=== PATIENT | male | born 1985 | race Caucasian/White ===

== ENCOUNTER 2017-04-14 00:49 | Emergency (ER) | payer OTHER ==
[~2017-04-14 00:49] MED LIST: Amrix15 MG; HYDACE5 PO; OXYACE5T PO; RANI150 PO; RXOXYACE PO; RXTRAM50 PO; SULTRIDS PO; TRAM50 PO; [UNRECOGNIZED DRUG - REMARK] SL
== END 2017-04-14 02:26 | disposition left against medical advice (07) ==
LOC: ER 00:49
DX: Z53.21 Procedure and treatment not carried out due to patient leaving prior to being seen by health care provider (principal)

== ENCOUNTER 2019-06-01 13:53 | Observation (INO) | payer OTHER ==
[~2019-06-01] VITALS: Ht 190.5 cm; Wt 120.2 kg
[2019-06-01 14:26] LABS: BASOPHILS ABSOLUTE AUTO 0.03 K/mm3 (0.00-0.23); BASOPHILS PERCENT AUTO 0 % (0-2); EOSINOPHILS ABSOLUTE AUTO 0.16 K/mm3 (0.00-0.68); EOSINOPHILS PERCENT AUTO 2 % (0-6); Hematocrit 47.3 % (37.0-53.0); Hemoglobin 15.4 g/dL (13.5-17.5); IMMATURE GRAN ABSOLUTE AUTO 0.02 K/mm3 (0.00-0.10); IMMATURE GRAN PERCENT AUTO 0 % (0-1); LYMPHOCYTES ABSOLUTE AUTO 1.85 K/mm3 (0.84-5.20); LYMPHOCYTES PERCENT AUTO 26 % (21-46); MONOCYTES ABSOLUTE AUTO 0.65 K/mm3 (0.16-1.47); MONOCYTES PERCENT AUTO 9 % (4-13); Mean Corpuscular HGB 29.6 pg (26.0-34.0); Mean Corpuscular HGB Conc 32.6 g/dL (31.5-36.5); Mean Corpuscular Volume 91 fL (80-100); Mean Platelet Volume 9.9 fL (9.1-12.4); NEUTROPHILS ABSOLUTE AUTO 4.29 K/mm3 (1.96-9.15); NEUTROPHILS PERCENT AUTO 61 % (41-73); Platelet Count 191 K/mm3 (150-400); RDW Standard Deviation 42.8 fL (35.1-46.3); Red Blood Cell Count 5.21 M/mm3 (4.30-5.90)
[2019-06-01 14:50] LABS: Alanine Aminotransfer (ALT/SGP 54 U/L (12-78); Albumin, Blood 4.2 g/dL (3.4-5.0); Albumin/Globulin Ratio 1.3 (0.8-1.8); Alk Phos 63 U/L (50-136); Anion Gap 6 mmol/L (6-16); Aspartate Aminotrans (AST/SGOT 37 U/L (12-37); Bilirubin, Total 0.7 mg/dL (0.1-1.0); Blood Urea Nitrogen 12 mg/dL (8-24); Bun/Creatinine Ratio 12.3 (12.0-20.0); CO2, Blood 24 mmol/L (21-32); Calcium, Blood 8.9 mg/dL (8.5-10.1); Chloride, Blood 111 mmol/L (98-108); Creatinine, Blood 0.98 mg/dL (0.60-1.20); Globulin, Blood 3.2 g/dL (2.2-4.0); Glomerular Filtration Rate >60 (60-); Glucose, Blood 83 mg/dL (70-99); Potassium, Blood 3.8 mmol/L (3.5-5.5); Sodium, Blood 141 mmol/L (136-145); Total Protein, Blood 7.4 g/dL (6.4-8.2); Troponin I <0.015 ng/mL (0.000-0.040)
--- NOTE | 2019-06-01 17:42 | NUR ---
Telephone report received on the pt. Anticipate arrival of pt to PCU 2 shortly.
--- NOTE | 2019-06-01 19:05 | NUR ---
BEDSIDE REPORT GIVEN TO IESHA CHAMPION RN
--- NOTE | 2019-06-01 20:45 | NUR ---
ASSUMED CARE OF PATIENT AT [facility] 1900 FROM NANCY White RN. PATIENT ARRIVED TO UNIT BEFORE SHIFT CHANGE; ADMISSION COMPLETE BEFORE REPORT WAS GIVEN. PATIENT ALERT AND ORIENTED X4; INDEPENDENT IN ROOM. CHEST PRESSURE SINCE ARRIVAL TO HOSPITAL 05/22 UP TO A 6/10 AT TIMES; TINGLING IN LEFT ARM AT TIMES. TROPONIN NEGATIVE X2. PIV S/L. PATIENT CURRENTLY EATING FAST FOOD DINNER WITH IN ROOM; REPORTS HE DOESNT EAT HOSPITAL FOOD. SB ON TELE; OXYGEN SATURATION ABOVE 90% ON ROOM AIR. PATIENT CURRENTLY RESTING IN BED; CALL LIGHT IN REACH; BED IN LOWEST POSISTION; WILL CONTINUE TO MONITOR AND ASSESS UNTIL END OF SHIFT.
--- NOTE | 2019-06-01 22:00 | NUR ---
WHILE ASSESSING PAIN AFTER CHARGE NURSE KEY Covington GAVE MORPHINE IV PATIENT REPORTS CHEST PAIN WAS AN 8 BEFORE MORPHINE AND A 5 AFTER. PATIENT REPROTS YESTERDAY HE WAS SWIMMING IN THE COLD WATER AND FORGOT TO MENTION THAT. WILL CONTINUE TO MONITOR AND ASSESS.
--- NOTE | 2019-06-01 22:40 | NUR ---
PATIENT REPORTS CHEST PRESSURE DOWN TO A 3. WILL GIVE UPDATE TO DR. MILLER.
--- NOTE | 2019-06-02 06:17 | NUR ---
NO ACUTE CHANGES TO REPORT. NO FURTHER COMPLAINTS OF CHEST PRESSURE. GI COCKTAIL GIVEN ONCE. VSS. TROPONIN NEGATIVE X3. WILL CONTINUE TO MONITOR AND ASSESS UNTIL END OF SHIFT.
--- NOTE | 2019-06-02 14:41 | NUR ---
PCU DISCHARGE SUMMARY PATIENT ALERT AND ORIENTED X4 T/O SHIFT. PATIENT DENIES ANY CHEST PAIN OR PRESSURE UPON ASSESSMENT AND T/O SHIFT. PATIENT LEFT UNIT VIA AMBULATION AND DISCHARGES ORDERS FOR HOME WITH . BELONGINGS SENT WITH PATIENT.
== END 2019-06-02 11:36 | disposition home or self-care (01) ==
LOC: ER 13:53 → PCU 17:19
PROVIDERS: Physician Assistant; ADMIT Internal Medicine
DX: R07.9 Chest pain, unspecified (principal); R61 Generalized hyperhidrosis; R20.2 Paresthesia of skin; I10 Essential (primary) hypertension; R00.1 Bradycardia, unspecified; Z87.891 Personal history of nicotine dependence; Z79.899 Other long term (current) drug therapy
CPT/HCPCS: 36415; 71046; 80053; 84484; 85025; 93005; 93010; 96372; 96374; 99285-25; A9270-GY; G0378; J1650; J2270

== ENCOUNTER 2020-04-25 12:36 | Day surgery (SDC) | payer OTHER ==
[~2020-04-25] VITALS: Ht 190.5 cm; Wt 111.3 kg
--- NOTE | 2020-04-25 14:34 | NUR ---
04/25/20 1434 Jared Holcomb PT HAD A SCANT AMOUNT OF BLEEDING AFTER INJECTION. PREASSURE APPLIED AND BLEEDING STOPPED. NEW BANDAID APPLIED. NO REDNESS OR SWELLING ON THE INJECTION SITE UPON DISCHARGE. DR. FERMIN IS AWARE OF SMALL BLEED, DR. FERMIN OK TO DISCHARGE PT. PT DENIES ANY DIZZINESS OR FEELING LIGHT HEADED. PT C/O SOME SORENESS ON THE INJECTION SITE. VS WNL.
== END 2020-04-25 13:55 | disposition home or self-care (01) ==
LOC: ORSCSDS 12:36
PROVIDERS: Anesthesiology
PROC: 3E0R33Z Introduction of Anti-inflammatory into Spinal Canal, Percutaneous Approach (ICD-10-PCS; principal; 2020-04-25 13:30)
DX: M51.16 Intervertebral disc disorders with radiculopathy, lumbar region (principal); E66.9 Obesity, unspecified; Z68.31 Body mass index [BMI] 31.0-31.9, adult; Z79.899 Other long term (current) drug therapy
CPT/HCPCS: J1040

== ENCOUNTER → 2020-11-28 | Outpatient (CLI) | payer OTHER | END | disposition home or self-care (01) | LOC: LAB 16:33 → LAB SHORT 16:33 | DX: N30.01 Acute cystitis with hematuria (principal) | CPT/HCPCS: 87077; 87086; 87186 ==

== ENCOUNTER 2021-03-11 11:05 | Day surgery (SDC) | payer OTHER ==
[~2021-03-11] VITALS: Ht 190.5 cm; Wt 122.6 kg
== END 2021-03-11 12:15 | disposition home or self-care (01) ==
LOC: ORSCSDS 11:05
PROVIDERS: Anesthesiology
PROC: 3E0R33Z Introduction of Anti-inflammatory into Spinal Canal, Percutaneous Approach (ICD-10-PCS; principal; 2021-03-11 12:00)
DX: M51.16 Intervertebral disc disorders with radiculopathy, lumbar region (principal); Z79.899 Other long term (current) drug therapy
CPT/HCPCS: J1040

== ENCOUNTER 2021-10-29 09:54 | Day surgery (SDC) | payer OTHER ==
[~2021-10-29] VITALS: Ht 190.5 cm; Wt 110.4 kg
[~2021-10-29 09:54] MED LIST changes: +Pepcid20 MG PO
[2021-10-29] MEDS ORDERED: OMEP20ER (10:34)
[2021-10-29] MEDS ORDERED: SUCR1 (10:34)
== END 2021-10-29 11:54 | disposition home or self-care (01) ==
LOC: ORSCSDS 09:54
PROVIDERS: Internal Medicine Gastroenterology
PROC: 0DB58ZX Excision of Esophagus, Via Natural or Artificial Opening Endoscopic, Diagnostic (ICD-10-PCS; principal; 2021-10-29 11:15)
DX: R13.14 Dysphagia, pharyngoesophageal phase (principal); R07.9 Chest pain, unspecified; K22.70 Barrett's esophagus without dysplasia; K20.90 Esophagitis, unspecified without bleeding; Z87.891 Personal history of nicotine dependence; E66.9 Obesity, unspecified; Z68.30 Body mass index [BMI] 30.0-30.9, adult; Z79.899 Other long term (current) drug therapy
CPT/HCPCS: 88305; 88312; J2704; J7120